=== PATIENT | female | born 1995 | race Caucasian/White ===

== ENCOUNTER 2024-12-27 09:46 | Inpatient (IN) | payer BC ==
[2024-12-26 12:18] LABS: Hematocrit 41.3 % (34.9-44.5); Hemoglobin 13.7 g/dL (12.0-15.5); Mean Corpuscular Hemoglobin 28.0 pg (27.0-33.0); Mean Corpuscular Volume 84.3 fL (81.6-98.3); Platelet Count 299 10x3/uL (150-450); Red Blood Cell (RBC) Count 4.90 10x6/uL (3.90-5.03); White Blood Cell (WBC) Count 9.14 10x3/uL (3.5-10.5)
[2024-12-26 12:54] LABS: Hep B Surf Ag Non-Reactive S/CO (NonReactive)
[2024-12-26 12:56] LABS: Syphilis Antibody Index 0.08 S/CO (<1.00 Non-Reactive)
[2024-12-26 14:05] VITALS: BMI 31.3
[2024-12-27] MEDS ORDERED: hydrALAZINE 20 MG/ML VIAL SLOW IVP PRN ×3 (10:36→16:27)
[2024-12-27] MEDS ORDERED: Ondansetron PF 4 MG/2 ML Vial IVP PRN ×2 (10:36→16:27)
[2024-12-27] MEDS ORDERED: Lanolin Ointment 7 GM TUBE TOP PRN (12:40)
[2024-12-27] MEDS ORDERED: diphenhydrAMINE 25 MG CAP PO PRN (12:40)
[2024-12-27] MEDS ORDERED: Simethicone Chewable 80 MG TAB PO PRN (12:40)
[2024-12-27] MEDS ORDERED: Bisacodyl 10 MG SUPP PR PRN (12:40)
[2024-12-27] MEDS: Oxytocin 30 units/NS 500 ML 500 ML IV SCH (13:41)
[2024-12-27] MEDS ORDERED: Oxytocin 30 units/NS 500 ML 500 ML IV SCH (16:27)
[2024-12-27] MEDS ORDERED: Carboprost 250 MCG/ML AMP IM PRN (16:27)
[2024-12-27] MEDS ORDERED: Diphenoxylate HCl/Atropine Tablet PO PRN ×2 (16:27)
[2024-12-27] MEDS ORDERED: Methylergonovine 0.2 MG/ML VIAL IM PRN (16:27)
[2024-12-27] MEDS ORDERED: Bicitra 30 ML UDCUP PO PRN (16:27)
[2024-12-27] MEDS ORDERED: Famotidine/PF 20 mg/2ml Vial SLOW IVP PRN (16:27)
[2024-12-27] MEDS ORDERED: Tranexamic Acid 1,000 MG/10 ML VIAL IVP PRN (16:27)
[2024-12-27] MEDS: CEFAZOLIN 2 GM VIAL ONE (16:44)
[2024-12-27] MEDS: Boostrix 0.5 ML (Tdap) VIAL (>/=7 yrs of age) IM ONE (16:45)
[2024-12-27] MEDS: Ketorolac Tromethamine 30 MG (1 mL) VIAL ONE (16:45)
[2024-12-27] MEDS: Ondansetron PF 4 MG/2 ML Vial ONE (16:45)
[2024-12-27] MEDS: Oxytocin 10 UNITS/ML VIAL ONE (16:45)
[2024-12-27] MEDS: Phenylephrine 40 MG/NS 250 ML 250 ML ONE (16:45)
[2024-12-27] MEDS: Ibuprofen 800 MG TAB PO SCH (22:03)
[2024-12-27] MEDS ORDERED: HYDROcodone/Acetaminophen 5/325 mg Tablet PO PRN (23:45)
[2024-12-28 05:50] LABS: Hematocrit 29.6 % (34.9-44.5); Hemoglobin 9.7 g/dL (12.0-15.5); Mean Corpuscular Hemoglobin 28.2 pg (27.0-33.0); Mean Corpuscular Volume 86.0 fL (81.6-98.3); Platelet Count 222 10x3/uL (150-450); Red Blood Cell (RBC) Count 3.44 10x6/uL (3.90-5.03); White Blood Cell (WBC) Count 9.63 10x3/uL (3.5-10.5)
[2024-12-28] MEDS: Ferrous Sulfate 325 MG TAB PO SCH (08:07)
[2024-12-28] MEDS: HYDROcodone/Acetaminophen 5/325 mg Tablet PO PRN (16:56)
[2024-12-29] MEDS: Acetaminophen 325 MG TAB PO PRN (01:27)
[2024-12-29 09:40] VITALS: BP 120/70; TEMP 98
== END 2024-12-29 12:05 | disposition home or self-care (01) | DRG 788 ==
LOC: CSHANTE 09:46 → CSHLD 12:08 → CSHPED 14:24
PROVIDERS: ADMIT Obstetrics & Gynecology; ATTEND Obstetrics & Gynecology
PROC: 10D00Z1 Extraction of Products of Conception, Low, Open Approach (ICD-10-PCS; principal; 2024-12-27)
PROC: 4A1HXCZ Monitoring of Products of Conception, Cardiac Rate, External Approach (ICD-10-PCS; 2024-12-27)
DX: O34.211 Maternal care for low transverse scar from previous cesarean delivery (principal); Z91.040 Latex allergy status; Z79.899 Other long term (current) drug therapy
CPT/HCPCS: 36415; 51702; 85027; 86780; 86850; 86900; 86901; 87340; J1885; J2274; J2405; J2590